=== PATIENT | female | born 1975 ===

== ENCOUNTER → 2023-08-19 06:27 | Day surgery (SDC) | payer BC, SELFPAY | LOC: GI 06:27 | PROVIDERS: ATTENDING PHYSICIAN Internal Medicine | DX: D50.9 Iron deficiency anemia, unspecified (principal); K57.30 Diverticulosis of large intestine without perforation or abscess without bleeding; K63.3 Ulcer of intestine; K62.89 Other specified diseases of anus and rectum; K22.89 Other specified disease of esophagus; K44.9 Diaphragmatic hernia without obstruction or gangrene; K29.80 Duodenitis without bleeding; K31.89 Other diseases of stomach and duodenum; D12.5 Benign neoplasm of sigmoid colon; K29.50 Unspecified chronic gastritis without bleeding | CPT/HCPCS: 45385; 45380; 43239; 88305; 88342 ==

== ENCOUNTER → 2024-06-03 06:43 | Outpatient (REF) | payer BC, SELFPAY | LOC: WDC 06:43 | PROVIDERS: ATTENDING PHYSICIAN Nurse Practitioner Adult Health | DX: Z12.31 Encounter for screening mammogram for malignant neoplasm of breast (principal) | CPT/HCPCS: 77063; 77067 ==

== ENCOUNTER → 2024-09-08 10:58 | Outpatient (REF) | payer BC, SELFPAY | LOC: RAD 10:58 | PROVIDERS: ATTENDING PHYSICIAN Internal Medicine; FAMILY PHYSICIAN Nurse Practitioner Adult Health | DX: K90.0 Celiac disease (principal) | CPT/HCPCS: 77080 ==

== ENCOUNTER → 2024-11-26 08:27 | Outpatient (REF) | payer BC, SELFPAY | LOC: RCS 08:27 | PROVIDERS: ATTENDING PHYSICIAN Internal Medicine; FAMILY PHYSICIAN Nurse Practitioner Adult Health | DX: R06.02 Shortness of breath (principal); Z82.49 Family history of ischemic heart disease and other diseases of the circulatory system; Z71.89 Other specified counseling | CPT/HCPCS: 93306 ==